=== PATIENT | female | born 2000 | race African-American/Black ===

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

== ENCOUNTER 2022-01-15 08:50 | Outpatient (CLI) | payer OTHER ==
[2022-01-15 09:15] LABS: PLATELET COUNT 228 K/uL (152-353)
[2022-01-15 09:35] LABS: POTASSIUM 3.7 mmol/L (3.6-5.2)
== END 2022-01-15 21:35 | disposition home or self-care (01) ==
LOC: LABW 08:50
PROVIDERS: ATTEND Nurse Practitioner Family
DX: N92.0 Excessive and frequent menstruation with regular cycle (principal); R10.32 Left lower quadrant pain
CPT/HCPCS: 36415; 80053; 81002; 81025; 84439; 84443; 85027; 87490; 87590

== ENCOUNTER 2022-01-25 14:34 | Outpatient (CLI) | payer OTHER | END 2022-01-25 19:01 | disposition home or self-care (01) | LOC: US 14:34 | PROVIDERS: ATTEND Nurse Practitioner Family | DX: N92.0 Excessive and frequent menstruation with regular cycle (principal) ==